=== PATIENT | female | born 1995 | race Caucasian/White ===

== ENCOUNTER 2018-08-18 12:31 | Emergency (ER) | payer OTHER ==
[2018-08-18 13:15] VITALS: BP 116/72
--- NOTE | 2018-08-18 13:28 | ED ---
Respiratory - HPI Summary HPI Summary: 22 yr old with nasal congestion, cough and hoarse voice. Onset of symptoms 5-6 days ago. No sore throat. She has not had sinus pain or post nasal drip. She denies ear pain. She has not had fever. She is a student at [employer]. She just got her menses. She complains of her voice being hoarse the most. No trouble breathing, no trouble swallowing. - History of Current Complaint Chief Complaint: UCRespiratory Stated Complaint: SORE THROAT, VOICE LOSS Time Seen by Provider: 08/18/18 13:08 Pain Intensity: 0 - Allergy/Home Medications Allergies/Adverse Reactions: Allergies Allergy/AdvReac Type Severity Reaction Status Date / Time No Known Allergies Allergy Verified 08/18/18 13:09 Home Medications: Home Medications Cpm/PE/Dm/Acetaminophen/Guaifn [Tylenol Cold-Flu Day-Nt Caplet] 2 each PO Q6H PRN 08/18/18 [History Confirmed 08/18/18] Guaifenesin/Dextromethorphan [Aby-Leslie Plus Mucus &] 2 cap PO BID PRN [History Confirmed 08/18/18] PMH/Surg Hx/FS Hx/Imm Hx Infectious Disease History: No Infectious Disease History: Denies: Traveled Outside the [place] in Last 30 Days - Family History Known Family History: Positive: None - Pt denies FMHX - Social History Occupation: Student Alcohol Use: Weekly Alcohol Amount: 1-2 times a week Substance Use Type: Reports: None Smoking Status (MU): Never Smoked Tobacco Review of Systems Constitutional: Negative Positive: Nasal Discharge Positive: Cough All Other Systems Reviewed And Are Negative: Yes Physical Exam Triage Information Reviewed: Yes Vital Signs On Initial Exam: Initial Vitals Temp Pulse Resp BP Pulse Ox 98 F 71 16 116/72 100 08/18/18 13:12 08/18/18 13:12 08/18/18 13:12 08/18/18 13:12 08/18/18 13:12 Vital Signs Reviewed: Yes Appearance: Positive: Well-Appearing, No Pain Distress Skin: Positive: Warm, Skin Color Reflects Adequate Perfusion Head/Face: Positive: Normal Head/Face Inspection Eyes: Positive: EOMI ENT: Positive: Normal ENT inspection, Pharynx normal, Nasal congestion, TMs normal, Hoarse voice - mild, Uvula midline. Negative: Pharyngeal erythema, Muffled voice, Sinus tenderness Neck: Positive: Nontender Respiratory/Lung Sounds: Positive: Clear to Auscultation, Breath Sounds Present Cardiovascular: Positive: RRR. Negative: Murmur Abdomen Description: Negative: Distended Musculoskeletal: Positive: Strength/ROM Intact Neurological: Positive: Sensory/Motor Intact, Alert, Oriented to Person Place, Time, CN Intact II-III Psychiatric: Positive: Normal Diagnostics - Vital Signs Vital Signs Temp Pulse Resp BP Pulse Ox 08/18/18 13:12 98 F 71 16 116/72 100 - Laboratory Lab Statement: Any lab studies that have been ordered have been reviewed, and results considered in the medical decision making process. Disposition - Course Course Of Treatment: 22 yr old with laryngo tracheo bronchitis. Rx prednisone for three days for relieve of the laryngitis. - Diagnoses Provider Diagnoses: Laryngitis Discharge - Sign-Out/Discharge Documenting (check all that apply): Patient Departure All imaging exams completed and their final reports reviewed: No Studies - Discharge Plan Condition: Good Disposition: HOME Prescriptions: predniSONE TAB* [Deltasone 20 MG TAB*] 40 mg PO DAILY #6 tab Patient Education Materials: Laryngitis (ED), Croup in Adults (ED) Referrals: No Primary Care Phys,NOPCP [Primary Care Provider] - [facility] [Outside] [facility] [[facility] - Billing Disposition and Condition Condition: GOOD Disposition: Home
== END 2018-08-18 13:33 | disposition home or self-care (01) ==
LOC: UCCORT 12:31
DX: J04.0 Acute laryngitis (principal); R09.81 Nasal congestion
CPT/HCPCS: 99212; G0463

== ENCOUNTER 2018-09-13 15:23 | Emergency (ER) | payer OTHER ==
[2018-09-13 15:54] VITALS: BP 132/79
[2018-09-13] MEDS ORDERED: Azithromycin TAB* 250 MG PO ONE (16:17)
--- NOTE | 2018-09-13 16:18 | UC ---
General HPI - HPI Summary HPI Summary: PT STATES SHE WAS EXPOSED TO CHLAMYDIA ABOUT 1 WEEK AGO. HER BOYFRIEND TESTED POSITIVE FOR IT BUT NOTHING ELSE. SHE HAS NO CURRENT S/S'S. SHE ENFORCES CONDOM USE DURING SEX BUT STILL HAS CONCERNS. - History of Current Complaint Chief Complaint: UCSTDScreening Stated Complaint: PERSONAL Time Seen by Provider: 09/13/18 16:12 Hx Obtained From: Patient Hx Last Menstrual Period: 08/15/18 Pain Intensity: 0 Associated Signs & Symptoms: Negative: Agitation, Dysuria, Fever - Allergy/Home Medications Allergies/Adverse Reactions: Allergies Allergy/AdvReac Type Severity Reaction Status Date / Time No Known Allergies Allergy Verified 09/13/18 15:47 Home Medications: Home Medications Ibuprofen TAB* [Advil TAB*] 400 mg PO Q6H PRN 09/13/18 [History Confirmed ] Norgestimate-Ethinyl Estradiol [Eji-Pg-Zxgtom 0.18/0.215/0.25 mg-25 Mcg] 1 tab PO DAILY 09/13/18 [History Confirmed 09/13/18] PMH/Surg Hx/FS Hx/Imm Hx Previously Healthy: Yes - Surgical History Surgical History: None - Family History Known Family History: Positive: None - Pt denies FMHX Negative: Diabetes - Social History Occupation: Student Alcohol Use: Weekly Alcohol Amount: 1-2 times a week Substance Use Type: None Smoking Status (MU): Never Smoked Tobacco - Immunization History Vaccination Up to Date: Yes Review of Systems All Other Systems Reviewed And Are Negative: Yes Physical Exam Triage Information Reviewed: Yes Appearance: Well-Appearing Vital Signs: Initial Vital Signs Temp 98.1 F 09/13/18 15:51 Pulse 92 09/13/18 15:51 Resp 18 09/13/18 15:51 BP 132/79 09/13/18 15:51 Pulse Ox 100 09/13/18 15:51 Vital Signs Reviewed: Yes Eyes: Positive: Conjunctiva Clear ENT: Positive: Normal ENT inspection Neck: Positive: Supple Respiratory: Positive: Lungs clear Cardiovascular: Positive: RRR Abdomen Description: Positive: Nontender, No Organomegaly, Soft Bowel Sounds: Positive: Present Pelvic Exam: Positive: Other - PT DECLINED, WILL CHECK URINE FOR GC/CHLAMYDIA. Musculoskeletal: Positive: ROM Intact Neurological: Positive: Alert Psychological: Positive: Age Appropriate Behavior Skin Exam: Normal Skin: Negative: Rashes Course/Dx - Differential Dx - Multi-Symptom Differential Diagnoses: Other - PELVIC EXAM DELINED. WILL TX PRESUMPTIVELY FOR THE CHLAMYDIA GIVEN EXPOSURE. GC/CHLAMYDIA TESTING FROM URINE IS PENDING. - Diagnoses Provider Diagnosis: STD exposure Discharge - Sign-Out/Discharge Documenting (check all that apply): Patient Departure All imaging exams completed and their final reports reviewed: No Studies - Discharge Plan Condition: Stable Disposition: HOME Patient Education Materials: Sexually Transmitted Diseases (ED) Referrals: [facility] [, APPLICATION, OTHER] - If Needed - Billing Disposition and Condition Condition: STABLE Disposition: Home
[2018-09-15 10:57] LABS: Neisseria gonorrhoeae (GC) RNA Negative (Negative)
== END 2018-09-13 16:26 | disposition home or self-care (01) ==
LOC: UCCORT 15:23
DX: Z20.2 Contact with and (suspected) exposure to infections with a predominantly sexual mode of transmission (principal)
CPT/HCPCS: 87491; 87591; 99212; A9270-GY; G0463